=== PATIENT | male | born 1965 | race Caucasian/White ===

== ENCOUNTER 2022-04-27 23:18 | Emergency (ER) | payer SELFPAY ==
[2022-04-28 00:24] VITALS: BP 148/100; PULSE 90
== END 2022-04-28 00:15 | disposition home or self-care (01) ==
LOC: MW.ED 23:18
DX: N49.2 Inflammatory disorders of scrotum (principal); F17.210 Nicotine dependence, cigarettes, uncomplicated; Z91.018 Allergy to other foods
CPT/HCPCS: 99283; 99285

== ENCOUNTER 2022-04-30 21:53 | Emergency (ER) | payer SELFPAY ==
[2022-04-30] MEDS ORDERED: Sodium Chloride 0.9% 2.5 ML Syringe FLUSH PRN (21:56)
[2022-04-30] MEDS ORDERED: Sodium Chloride 0.9% 10 ML Syringe FLUSH PRN (21:56)
[2022-05-01 00:20] LABS: CARBON DIOXIDE,CO2 24.6 mmol/L (21.0-32.0); POTASSIUM,K 3.9 mmol/L (3.5-5.1)
[2022-05-01 01:16] VITALS: BP 132/74; PULSE 79
== END 2022-05-01 01:15 | disposition home or self-care (01) ==
LOC: MW.ED 21:53
DX: H10.33 Unspecified acute conjunctivitis, bilateral (principal); Z91.018 Allergy to other foods; Z72.0 Tobacco use
CPT/HCPCS: 36415; 76870; 76870-26; 80053; 81003; 83605; 85025; 87040; 99283; 99284